=== PATIENT | male | born 1960 | race Caucasian/White ===

== ENCOUNTER 2016-08-30 08:14 | Emergency (ER) | payer OTHER ==
[2016-08-30 08:20] VITALS: BP 153/96; BMI 33.3
[2016-08-30] MEDS ORDERED: ADACEL TDaP IM ONE ×2 (08:43→08:50)
[2016-08-30] MEDS ORDERED: XYLOCAINE 2 % (PLAIN) ONE (08:49)
--- NOTE | 2016-08-30 08:52 | DR.GENAD ---
HPI - PCP Primary Care Physician: brain - HPI Comment HPI Comment: LAC LT INDEX FINGER SUSTAIN TODAY. - Complaint/Symptoms Chief Complaint Doctors Comments: LAC LT INDEX FINGER. Chief Complaint:: laceration to left index finger - Nurses notes reviewed Nurses Notes Review: Yes - Source History Provided: Patient - Mode of Arrival Mode of Arrival: Ambulatory - Timing Onset of Chief Complaint: 08/30/16 Came on: Suddenly - Duration Duration: Hours - Severity Severity: Moderate PMH - PMH Past Medical History: Yes Past Medical History: Arthritis, Hypertension Past Surgical History: Yes Surgical History: Ortho Surgery - Family History History of Family Medical Conditions: Yes Family Medical History: Hypertension - Social History Does patient currently use any type of tobacco product: No Have you used tobacco products in the last 12 months: No Type of Tobacco Use: None Does any household member use tobacco: No Alcohol Use: None Do you use any recreational Drugs:: No Lives With: Other Lives Where: Home - infectious screening In the last 2 months have you had wt loss of >10#?: NO Have you had fever, night sweats or hemotysis?: No Have you traveled outside the country in the last 6 months?: No Isolation: Standard ROS - Review of Systems Constitutional: No Symptoms Reported Eyes: No Symptoms Reported ENTM: No Symptoms Reported Respiratoy: No Symptoms Reported Cardiovascular: No Symptoms Reported Gastrointestinal/Abdominal: No Symptoms Reported Genitourinary: No Symptoms Reported Neurological: No Symptoms Reported Musculoskeletal: No Symptoms Reported, Left, Hand Integumentary: Wound (LAC, 3CM LT INDEX FINGER.) Hematologic/Lymphatic: No Symptoms Reported Endocrine: No Symptoms Reported All Other Systems: Reviewed and Negative PE - Vital Signs Vitals: Temperature 99.0 F Pulse Rate 96 Respiratory Rate 16 Blood Pressure 153/96 O2 Sat by Pulse Oximetry 95 - General Limitations: No Limitations General Appearance: Alert - Head Head Exam: Normal Inspection - Eyes Eye exam: Normal Appearance - ENT ENT Exam: Normal External Ear Exam External Ear Exam: Normal External Inspection TM/Canal Exam: Bilateral Normal Nose Exam: Normal Nose Exam Mouth Exam: Normal Inspection Throat Exam: Normal Inspection - Neck Neck Exam: Normal Inspection - Chest Chest Inspection: Symmetric Chest Wall Rise - Respiratory Respiratory Exam: Normal Lung Sounds Bilat Respiratory Exam: Bilateral Clear to Auscultation - Cardiovascular Cardiovascular Exam: Regular Rate, Normal Rhythm, Normal Heart Sounds - Abdominal Exam Abdominal Exam: Normal Inspection - Extremities Extremities Exam: Tenderness (LT INDEX FINGER LAC) - Back Back Exam: Normal Inspection - Neurologic Neurological Exam: Alert, Oriented X3 - Skin Skin Exam: Erythema MDM - Differential Diagnosis Differential Diagnosis: LAC LT INDEX FINGER. Course - Treatment Treatment: SEE REPORT. - Education/Counseling Education/Counseling: Patient, Education Educated On: Diagnosis, Needs for Follow Up ROR - XRAY XRAY Interpreted by: Radiologist XRAY Findings: REPORT DISCUSS WITH PATIENT. Procedures - Laceration/Wound Repair Left Finger Wound Length (cm): 3 Wound's Depth, Shape: Linear Wound Explored: clean Betadine Prep?: Yes Anesthesia: 1% Lidocaine Volume Anesthetic (ccs): 3 Wound Debrided: minimal Wound Repaired With: sutures Suture Size/Type: 4:0, [place] Number of Sutures: 7 Layer Closure?: No Sterile Dressing Applied?: Yes Splint Applied?: No Sling Applied?: No - Diagnosis Discharge Problem: Laceration of index finger Qualifiers: Encounter type: initial encounter Qualified Code(s): S61.218A - Laceration without foreign body of other finger without damage to nail, initial encounter - Discharge Plan Disposition: 01 HOME, SELF-CARE Condition: Stable Prescriptions: Cephalexin [Keflex Cap 500 mg] 500 mg PO BID #14 cap Ibuprofen [MOTRIN TAB 600 MG *] 600 mg PO BID PRN #20 tab PRN Reason: Pain/Inflammation - Follow ups/Referrals Follow ups/Referrals: NFD,None [Primary Care Provider] - 3 days - Instructions Instructions: Laceration Care, Adult, [id number]-Tynt Additional Instructions: SUTURE OUT IN 10 DAYS. RETURN TO ED IF WORSE.
[2016-08-30] MEDS ORDERED: ANCEF VIAL 1 GM IM ONE (08:53)
[2016-08-30] MEDS ORDERED: ANCEF VIAL 1 GM ONE (08:57)
--- NOTE | 2016-08-30 09:53 | RAD ---
Examination: X-rays of the left hand. Clinical history: Left hand laceration, dropped tool on left hand, laceration to 2nd digit. Technique: Three views of the left hand were obtained. Comparison: None available. Findings: No acute fracture, dislocation, or destructive bony lesion is noted. There is fusion of the interphalangeal joint of the thumb, which is probably postsurgical in nature. There is an 8 mm corticated ossific density seen at the distal aspect of the ulnar styloid, which co uld represent a small accessory ossicle or old ununited ulnar styloid fracture. There is a mild deformity of the distal diaphysis of the radius, suggestive of an old healed fractur e. No soft tissue abnormality is noted. Impression: 1. No acute fracture or dislocation. Reported By:
== END 2016-08-30 10:35 | disposition home or self-care (01) ==
LOC: ER 08:35
PROC: 0XQP0ZZ Repair Left Index Finger, Open Approach (ICD-10-PCS; principal; 2016-08-30)
DX: S61.218A Laceration without foreign body of other finger without damage to nail, initial encounter (principal); W45.8XXA Other foreign body or object entering through skin, initial encounter; Y92.9 Unspecified place or not applicable
CPT/HCPCS: 12002; 73130; 90471; 96372; 99282; 99283; J0690; J2001

== ENCOUNTER 2019-08-30 19:31 | Inpatient (IN) ==
[2019-08-30 19:35] VITALS: BMI 21.5
--- NOTE | 2019-08-30 20:24 | DR.ABDMALE ---
HPI Time seen Time Seen by Provider: 08/30/19 20:16 PCP Primary Care Physician: LANDON HPI comment HPI Comment: PATIENT IS 59YR OLD MALE IN ER WITH PAIN IN LEFT GROIN RADIATING TO LEFT SCOTUM. PAIN SUDDEN ONSET , SHARP ASSOCIATED WITH NAUSEA. NO FEVER OR DYSURIA. DENIES TRAUMA. PAIN IS 10/10 AND SHARP. PATIENT DID NOT TAKE ANY MEDICATION FOR PAIN AND NO SIMILAR PAIN IN THE PAST. MOVEMENT AGGEVATES PAIN AND RESTING DECREASES PAIN. Complaint Chief Complaint:: PT AMBULATED IN ED WITH C/O HERNIA THAT HAS WENT DOWN INTO LEFT TESTICLE. STATES ITS PULLING. COVID-19 Coronavirus risk:travel/contact w/high risk person: No Has patient experienced Coronavirus symptoms: No Reviewed Nurses Notes Review: Yes Source History provided by:: Leonora Mode of arrival Mode of Arrival: Ambulatory Timing Onset of Chief Complaint: 08/30/19 Came on: Suddenly Duration Duration: Constant Duration: Hours Location Location: [facility] Severity Severity: Severe Quality Quality: Sharp Context Onset: Suddenly History of: None Modifying factors Worsening Factors: Exertion Improving Factors: Lying Still Associated signs and symptoms Associated Signs and Symptoms: Nausea PMH PMH Past Medical History: Yes Past Medical History: Arthritis and Hypertension Past Surgical History: Yes Surgical History: Ortho Surgery Family History History of Family Medical Conditions: Yes Family Medical History: Cancer, [place], Coronary Artery Disease, Heart Failure and Hypertension Social History Does patient currently use any type of tobacco product: Yes Have you used tobacco products in the last 12 months: Yes Type of Tobacco Use: Cigarettes Does any household member use tobacco: No Alcohol Use: None Do you use any recreational Drugs:: No Lives With: Family Lives Where: Home Travel Risk Coronavirus risk:travel/contact w/high risk person: No Has patient experienced Coronavirus symptoms: No Infectious screening In the last 2 months have you had wt loss of >10#?: NO Have you had fever, night sweats or hemotysis?: No Have you traveled outside the country in the last 6 months?: No Isolation: Standard ROS Review of Systems Constitutional: No Symptoms Reported and See HPI; negative Fever, Weakness and Fatigue Eyes: No Symptoms Reported and See HPI; negative Blurred Vision ENTM: No Symptoms Reported and See HPI; negative Ear Pain, Nose Discharge, Nose Congestion and Throat Pain Respiratoy: No Symptoms Reported and See HPI; negative Moist Cough, Short of Breath and Wheezing Cardiovascular: No Symptoms Reported and See HPI; negative Chest Pain, Edema and Palpitations Gastrointestinal/Abdominal: No Symptoms Reported, See HPI, Abdominal Pain and Nausea Genitourinary: No Symptoms Reported, See HPI and Pain; negative Dysuria, Freq uency and Hematuria Neurological: No Symptoms Reported and See HPI; negative Headache, Weakness and Dizziness Musculoskeletal: No Symptoms Reported and See HPI Integumentary: No Symptoms Reported and See HPI Hematologic/Lymphatic: No Symptoms Reported and See HPI; negative Easy Bruising and Swollen Glands Endocrine: No Symptoms Reported and See HPI; negative Increased Thirst and Increased Urine Psychiatric: No Symptoms Reported and See HPI All Other Systems: Reviewed and Negative PE Vital Signs Vital Signs: Temp Pulse Resp BP BP Pulse Ox 08/30/19 21:59 74 18 97 08/30/19 21:40 18 08/30/19 21:10 20 08/30/19 21:00 89 20 136/72 94 L 08/30/19 19:32 98.8 F 110 H 22 181/95 94 L 01/08/18 20:27 133/87 General Limitations: No Limitations General Appearance: Alert and In No Apparent Distress Head Head Exam: Normal Inspection Eyes Eye exam: Normal Appearance and PERRL; negative Scleral Icterus and Conjunctival Injection ENT ENT Exam: Normal Exam, Normal Oropharynx, Normal External Ear Exam and TM's Normal Bilaterally Neck Neck Exam: Normal Inspection Chest Chest Inspection: Normal Inspection and Symmetric Chest Wall Rise; negative Tenderness Respiratory Respiratory Exam: Normal Lung Sounds Bilat; negative Accessory Muscle Use, Chest Wall Tenderness and Respiratory Distress Respiratory Exam: Bilateral: Clear to Auscultation Cardiovascular Cardiovascular Exam: Regular Rate, Normal Rhythm and Normal Heart Sounds; negative Systolic Murmur and Diastolic Murmur Abdominal Exam Abdominal Exam: Normal Bowel Sounds, Soft, Tenderness (LEFT GROIN AND SCROTUM.) and Hernia (LEFT GROIN HERNIA THAT IS NOT REDUCIBLE.) Abdominal Tenderness: LLQ Rectal Rectal Exam: Deferred Back Back Exam: Normal Inspection; negative (R) CVA Tenderness and (L) CVA Tenderness Extremeties Extremities Exam: Normal Inspection and Normal Capillary Refill; negative Tenderness, Edema and Calf Tenderness Exam: Male: Other (LEFT SCOTUM TENDER.); negative Testicular Tenderness Neurologic Neurological Exam: Alert, Oriented X3 and CN II-XII Intact; negative Motor Sensory Deficit Psychiatric Psychiatric Exam: Normal Affect and Normal Mood Skin Skin Exam: Warm, Dry, Intact and Normal Color MDM Differential Diagnosis Differential Diagnosis: Hernia (INCARCERATED LEFT INGUINAL HERNIA.), Urinary tract infection and Urolithiasis Other differential diagnosis: LEFT GROIN PAIN COURSE Treatment Treatment: SEE ORDERS. Reevaluation 1st: Improved (PAIN IMPROVING.) Consultation Consultation Comments: DISCUSSED PATIENT WITH DR. LANDERS. HE WILL ADMIT PATIENT. Education/Counseling Education/Counseling: Patient Educated On: Diagnosis ROR Labs Reviewed Laboratory Results Reviewed?: Yes Result Diagrams: 09/01/19 05:22 09/01/19 05: Laboratory: 08/30/19 05: Urine,Clean Catch Urine Culture - Final WBC 10.0 X10^3/uL (3.6-10.0) 08/30/19 20:55 RBC 4.59 X10^6/uL (4.7-6.0) L 08/30/19 20:55 Hgb 12.2 g/dL (13.5-18.0) L 08/30/19 20:55 Hct 36.8 % (42.0-54.0) L 08/30/19 20:55 MCV 80.2 fL (80.0-100.0) 08/30/19 20:55 MCH 26.5 pg (27.0-34.0) L 08/30/19 20:55 MCHC 33.0 g/dL (33.0-35.0) 08/30/19 20:55 RDW 14.9 % (11.6-16.5) 08/30/19 20:55 Plt Count 351 X10^3/uL (150.0-450.0) 08/30/19 20:55 MPV 7.2 fL (7.4-11.0) L 08/30/19 20:55 Neut % (Auto) 52.7 % (42.0-75.0) 08/30/19 20:55 Lymph % (Auto) 20.4 % (21.0-51.0) L 08/30/19 20:55 [place] % (Auto) 8.7 % (0.0-13.0) 08/30/19 20:55 Eos % (Auto) 17.3 % (0.9-2.9) H 08/30/19 20:55 Baso % (Auto) 0.9 % (0.2-1.0) 08/30/19 20:55 Neut # (Auto) 5.3 x10^3/uL (2.2-4.8) H 08/30/19 20:55 Lymph # (Auto) 2.0 X10^3/uL (1.3-2.9) 08/30/19 20:55 [place] # (Auto) 0.9 x10^3/uL (0.3-0.8) H 08/30/19 20:55 Eos # (Auto) 1.7 x10^3/uL (0.0-0.2) H 08/30/19 20:55 Baso # (Auto) 0.1 X10^3/uL (0.0-0.1) 08/30/19 20:55 Absolute Nucleated RBC 0.0 /100WBC 08/30/19 20:55 Sodium 138 mmol/L (136-145) 08/30/19 20:55 Corrected Sodium TNP 08/30/19 20:55 Potassium 4.3 mmol/L (3.5-5.1) 08/30/19 20:55 Chloride 102 mmol/L (98-107) 08/30/19 20:55 Carbon Dioxide 26.2 mmol/L (21-32) 08/30/19 20:55 BUN 27 mg/dL (7-18) H 08/30/19 20:55 Creatinine 1.64 mg/dL (0.70-1.30) H 08/30/19 20:55 Est GFR (MDRD) Af Amer 56 (>60) L 08/30/19 20:55 Est GFR (MDRD) Non-Af 46 (>60) L 08/30/19 20:55 Glucose 102 mg/dL (65-99) H 08/30/19 20:55 Calcium 9.0 mg/dL (8.5-10.1) 08/30/19 20:55 Corrected Calcium TNP 08/30/19 20:55 Total Bilirubin 0.60 mg/dL (0.2-1.0) 08/30/19 20:55 AST 21 Units/L (15-37) 08/30/19 20:55 ALT 17 Units/L (12-78) 08/30/19 20:55 Alkaline Phosphatase 120 Units/L (46-116) H 08/30/19 20:55 Total Protein 8.2 g/dL (6.4-8.2) 08/30/19 20:55 Albumin 3.7 g/dL (3.4-5.0) 08/30/19 20:55 Globulin 4.5 g/dL (2.5-4.5) 08/30/19 20:55 Albumin/Globulin Ratio 0.8 Ratio (1.1-2.1) L 08/30/19 20:55 Specimen Type Clean catch urine 08/30/19 05:20 Urine Color Yellow (YELLOW) 08/30/19 05:20 Urine Appearance Clear (CLEAR) 08/30/19 05:20 Urine pH 5.0 (5.0 - 8.0) 08/30/19 05:20 Ur Specific [place] 1.025 (1.000-1.030) 08/30/19 05:20 Urine Protein 2+ (NEGATIVE) 08/30/19 05:20 Urine Glucose (UA) Negative (NEGATIVE) 08/30/19 05:20 Urine Ketones Negative (NEGATIVE) 08/30/19 05:20 Urine Occult Blood 2+ (NEGATIVE) 08/30/19 05:20 Urine Nitrite Positive (NEGATIVE) 08/30/19 05:20 Urine Bilirubin Negative (NEGATIVE) 08/30/19 05:20 Urine Urobilinogen Normal (NORMAL) 08/30/19 05:20 Ur Leukocyte Esterase 1+ (NEGATIVE) 08/30/19 05:20 Urine RBC 3-5 /HPF (0-3) A 08/30/19 05:20 Urine WBC 3-5 /HPF (0-5) 08/30/19 05:20 Ur Squamous Epith Cells Rare /HPF (NEGATIVE) 08/30/19 05:20 Urine Bacteria 2+ /HPF (NEGATIVE) 08/30/19 05:20 Urine Yeast Few /HPF (NEGATIVE) 08/30/19 05:20 Ur Culture Indicated? Yes/culture set up 08/30/19 05:20 XRAY XRAY Interpreted by: Radiologist (REPOR NOTED AND DISCUSSED WITH PATIENT.) and Self EKG Rate: 82 [place]: Normal Rhythm: NSR Block: None Hypertrophy: None ST: Normal Opioid Opioid Risk Tool Age (Kaz box if 16-45): No History of Preadolescent Sexual Abuse: No Total: 0 Total Score Risk Category: Low Risk Copyright: Junior COLUNGA predicting aberrant behaviors Diagnosis Discharge Problem: Incarcerated left inguinal hernia Hypertension Qualifiers: Hypertension type: essential hypertension Qualified Code(s): I10 - Essential (primary) hypertension Instructions Instructions: Inguinal Hernia, Adult, [id number] Steps to Quit Smoking, Nemq-vf-[id number] Open Hernia Repair, Adult, Care After, Pqvg-[id number] Hypertension, Zpqu-se-[id number] Pain Medicine Instructions, Rhgq-eh-[id number] Forms: Precautions for COVID19 Patient Portal Social Distancing
[2019-08-30] MEDS ORDERED: NS 1000 ML 1,000 ML ONE (20:50)
[2019-08-30] MEDS ORDERED: NS 100 ML IV + SPIKE MINIBAG* 100 ML IV ONE (20:50)
[2019-08-30] MEDS ORDERED: DILAUDID INJ ONE (20:51)
[2019-08-30] MEDS ORDERED: ZOSYN VIAL 3.375 GRAMS IV ONE (20:51)
[2019-08-30 21:07] LABS: BASOPHILS # (AUTO) 0.1 X10^3/uL (0.0-0.1); BASOPHILS % (AUTO) 0.9 % (0.2-1.0); EOSINOPHILS # (AUTO) 1.7 x10^3/uL (0.0-0.2); EOSINOPHILS % (AUTO) 17.3 % (0.9-2.9); HEMATOCRIT 36.8 % (42.0-54.0); HEMOGLOBIN 12.2 g/dL (13.5-18.0); LYMPHOCYTES % (AUTO) 20.4 % (21.0-51.0); MEAN CORPUSCULAR HEMOGLOBIN 26.5 pg (27.0-34.0); MEAN CORPUSCULAR VOLUME 80.2 fL (80.0-100.0); MEAN PLATELET VOLUME 7.2 fL (7.4-11.0); MONOCYTES # (AUTO) 0.9 x10^3/uL (0.3-0.8); MONOCYTES % (AUTO) 8.7 % (0.0-13.0); NEUTROPHILS # (AUTO) 5.3 x10^3/uL (2.2-4.8); NEUTROPHILS % (AUTO) 52.7 % (42.0-75.0); PLATELET COUNT 351 X10^3/uL (150.0-450.0); RED BLOOD COUNT 4.59 X10^6/uL (4.7-6.0); RED CELL DISTRIBUTION WIDTH 14.9 % (11.6-16.5)
[2019-08-30] MEDS: DILAUDID INJ IVP PRN (21:10)
[2019-08-30] MEDS: ZOSYN VIAL 3.375 GRAMS 3.375 G in NS 100 ML IV + SPIKE MINIBAG* 100 ML IV SCH ×2 (21:11→22:55)
[2019-08-30] MEDS: NS 1000 ML 1,000 ML IV SCH (21:14)
[2019-08-30 21:16] LABS: ALANINE AMINOTRANSFERASE 17 Units/L (12-78); ALBUMIN 3.7 g/dL (3.4-5.0); ALKALINE PHOSPHATASE 120 Units/L (46-116); ASPARTATE AMINO TRANSFERASE 21 Units/L (15-37); BLOOD UREA NITROGEN 27 mg/dL (7-18); CARBON DIOXIDE 26.2 mmol/L (21-32); CHLORIDE 102 mmol/L (98-107); CREATININE 1.64 mg/dL (0.70-1.30); SODIUM 138 mmol/L (136-145); TOTAL PROTEIN 8.2 g/dL (6.4-8.2); eGFR NON BLACK RACES 46 (>60)
--- NOTE | 2019-08-30 22:37 | RAD ---
HISTORYPRE OP HERNIA, C/O HERNIA THAT HAS WENT DOWN INTO LEFT TESTICLE. STATES ITS PULLINGSTUDYCHEST, 1 VIEWCOMPARISONNoneFINDINGSThere is a right-sided aortic arch. The heart is normal. The pulmonary vessels are normal. The lungs are mildly hyperinflated. No consolidation or effusion is seen.IMPRESSIONNo acute cardiopulmonary abnormality.Incidental right-sided aortic arch.Electronically signed by: OFELIA GOFF (August 30, 2019 22:36:05)
[2019-08-30] MEDS ORDERED: ZOFRAN INJ 4 MG VIAL IVP PRN (22:47)
[2019-08-31] MEDS: DILAUDID INJ IVP PRN ×7 (01:14→19:36)
[2019-08-31] MEDS: ZOSYN VIAL 3.375 GRAMS 3.375 G in NS 100 ML IV + SPIKE MINIBAG* 100 ML IV SCH (05:03)
[2019-08-31] MEDS: NS 1000 ML 1,000 ML IV SCH (05:03)
[2019-08-31 05:49] LABS: BILIRUBIN,URINE NEGATIVE (NEGATIVE); BLOOD/HEMOGLOBIN,URINE 2+ (NEGATIVE); GLUCOSE, URINE NEGATIVE (NEGATIVE); KETONES,URINE NEGATIVE (NEGATIVE); LEUKOCYTE ESTERASE ,URINE 1+ (NEGATIVE); NITRITES,URINE POSITIVE (NEGATIVE); PROTEIN,URINE 2+ (NEGATIVE); UROBILINOGEN,URINE NORMAL (NORMAL)
[2019-08-31 05:56] LABS: APPEARANCE,URINE CLEAR (CLEAR); BACTERIA,URINE 2+ /HPF (NEGATIVE); COLOR,URINE YELLOW (YELLOW); SQUAMOUS EPITHELIAL CELL,UR RARE /HPF (NEGATIVE); YEAST,URINE FEW /HPF (NEGATIVE)
[2019-08-31 06:04] LABS: BASOPHILS # (AUTO) 0.1 X10^3/uL (0.0-0.1); BASOPHILS % (AUTO) 0.9 % (0.2-1.0); EOSINOPHILS # (AUTO) 2.1 x10^3/uL (0.0-0.2); EOSINOPHILS % (AUTO) 23.7 % (0.9-2.9); HEMATOCRIT 36.7 % (42.0-54.0); LYMPHOCYTES % (AUTO) 34.2 % (21.0-51.0); MEAN CORPUSCULAR HEMOGLOBIN 26.5 pg (27.0-34.0); MEAN CORPUSCULAR HGB CONC 32.6 g/dL (33.0-35.0); MEAN CORPUSCULAR VOLUME 81.1 fL (80.0-100.0); MEAN PLATELET VOLUME 7.8 fL (7.4-11.0); MONOCYTES # (AUTO) 0.9 x10^3/uL (0.3-0.8); NEUTROPHILS # (AUTO) 2.7 x10^3/uL (2.2-4.8); NEUTROPHILS % (AUTO) 31.2 % (42.0-75.0); PLATELET COUNT 326 X10^3/uL (150.0-450.0); RED BLOOD COUNT 4.52 X10^6/uL (4.7-6.0); RED CELL DISTRIBUTION WIDTH 14.9 % (11.6-16.5); WHITE BLOOD COUNT 8.8 X10^3/uL (3.6-10.0)
[2019-08-31 06:12] LABS: ALANINE AMINOTRANSFERASE 16 Units/L (12-78); ALBUMIN 3.3 g/dL (3.4-5.0); ALKALINE PHOSPHATASE 109 Units/L (46-116); ASPARTATE AMINO TRANSFERASE 19 Units/L (15-37); BLOOD UREA NITROGEN 25 mg/dL (7-18); CALCIUM 8.8 mg/dL (8.5-10.1); CARBON DIOXIDE 28.9 mmol/L (21-32); CHLORIDE 106 mmol/L (98-107); COR CA(FOR HYPOALB) 9.4 mg/dL (8.5-10.1); CREATININE 1.36 mg/dL (0.70-1.30); SODIUM 142 mmol/L (136-145); TOTAL PROTEIN 7.5 g/dL (6.4-8.2); eGFR NON BLACK RACES 57 (>60)
[2019-08-31 07:22] LABS: PLATELET MORPHOLOGY COMMENT NORMAL (NORMAL)
[2019-08-31] MEDS ORDERED: DUONEB 0.5 MG/3 MG (3 mL) NEB ONE (08:43)
[2019-08-31] MEDS ORDERED: NEOSTIGMINE INJ ONE (08:51)
[2019-08-31] MEDS ORDERED: ULTANE GAS IN ONE (08:51)
[2019-08-31] MEDS ORDERED: DIPRIVAN VIAL ONE (08:51)
[2019-08-31] MEDS ORDERED: QUELICIN (OR ANECTINE) ONE (08:51)
[2019-08-31] MEDS ORDERED: XYLOCAINE 1 % (PLAIN) ONE (08:51)
[2019-08-31] MEDS ORDERED: DECADRON INJ ONE ×2 (08:51→11:24)
[2019-08-31] MEDS ORDERED: VERSED ONE (08:51)
[2019-08-31] MEDS ORDERED: TORADOL 30 MG VIAL ONE (08:51)
[2019-08-31] MEDS ORDERED: NORCURON INJ 10 MG VIAL ONE (08:51)
[2019-08-31] MEDS ORDERED: ZOFRAN INJ 4 MG VIAL ONE (08:51)
[2019-08-31] MEDS ORDERED: ROBINUL ONE (08:51)
--- NOTE | 2019-08-31 10:38 | DR.H&P ---
H&P History & Physical for Day of: H&P Date: 08/31/19 Chief Complaint Chief Complaint: acute testicular pain Allergies Allergies Allergy/AdvReac Type Severity Reaction Status Date / Time No Known Drug Allergies Allergy Verified 01/08/18 16:49 History of Present Illness History of Present Illness: Patient is a 59y/o male with a PMH of HTN, arthritis presented with acute left inguinal and testicular pain. Patient reports he was working in the yard and digging up dirt when he felt a muscle pull into his testicle. He reports severe sharp pain therefore came to the ED. He states he has had inguinal hernia for a while but no prev episodes like this. He has a hx of HTN, was on clonidine but has not taken it recently due to running out and having no PCP. ED work-up - Pain control, IVF - Cr: 1.64, UA: nitrites +, CLOTILDE 1+ - CXR negative, COVID pending for pre-op - Dr. Juárez contacted for possible incarcerated hernia, patient was kept NPO for procedure today Plan: surgery today, continue IVF, Zosyn and pain control. Follow urine culture. Past Medical History Past Medical History: Arthritis and Hypertension Past Surgical History Surgical History: Ortho Surgery and Tonsillectomy Family History Family Medical History: Cancer, [place], Coronary Artery Disease, Heart Failure and Hypertension Social History Does patient currently use any type of tobacco product: Yes Have you used tobacco products in the last 12 months: Yes Type of Tobacco Use: Cigarettes How many years tobacco product used: 20 Does any household member use tobacco: No Alcohol Use: None Drug Use: None Medications Home Medications: No Known Drug Allergies Allergy (Verified 01/08/18 16:49) CONTINUE taking the following medications NK 08/30/19 [History] Labs Result Diagrams: 08/31/19 04:38 08/31/19 04:38 Labs: Laboratory WBC 8.8 X10^3/uL (3.6-10.0) 08/31/19 04:38 RBC 4.52 X10^6/uL (4.7-6.0) L 08/31/19 04:38 Hgb 12.0 g/dL (13.5-18.0) L 08/31/19 04:38 Hct 36.7 % (42.0-54.0) L 08/31/19 04:38 MCV 81.1 fL (80.0-100.0) 08/31/19 04:38 MCH 26.5 pg (27.0-34.0) L 08/31/19 04:38 MCHC 32.6 g/dL (33.0-35.0) L 08/31/19 04:38 RDW 14.9 % (11.6-16.5) 08/31/19 04:38 Plt Count 326 X10^3/uL (150.0-450.0) 08/31/19 04:38 Plt Count Comment Adequate (ADEQUATE) 08/31/19 04:38 MPV 7.8 fL (7.4-11.0) 08/31/19 04:38 Neut % (Auto) 31.2 % (42.0-75.0) L 08/31/19 04:38 Lymph % (Auto) 34.2 % (21.0-51.0) 08/31/19 04:38 [place] % (Auto) 10.0 % (0.0-13.0) 08/31/19 04:38 Eos % (Auto) 23.7 % (0.9-2.9) H 08/31/19 04:38 Baso % (Auto) 0.9 % (0.2-1.0) 08/31/19 04:38 Neut # (Auto) 2.7 x10^3/uL (2.2-4.8) 08/31/19 04:38 Lymph # (Auto) 3.0 X10^3/uL (1.3-2.9) H 08/31/19 04:38 [place] # (Auto) 0.9 x10^3/uL (0.3-0.8) H 08/31/19 04:38 Eos # (Auto) 2.1 x10^3/uL (0.0-0.2) H 08/31/19 04:38 Baso # (Auto) 0.1 X10^3/uL (0.0-0.1) 08/31/19 04:38 Absolute Nucleated RBC 0.0 /100WBC 08/31/19 04:38 Total Counted 100 08/31/19 04:38 Neutrophils % (Manual) 35 % (39-76) L 08/31/19 04:38 Lymphocytes % (Manual) 40 % (13-43) 08/31/19 04:38 Monocytes % (Manual) 6 % (4-9) 08/31/19 04:38 Eosinophils % (Manual) 19 % (0-6) H 08/31/19 04:38 Plt Morphology Comment Normal (NORMAL) 08/31/19 04:38 RBC Morphology Normal (NORMAL) 08/31/19 04:38 Sodium 142 mmol/L (136-145) 08/31/19 04:38 Corrected Sodium TNP 08/31/19 04:38 Potassium 4.3 mmol/L (3.5-5.1) 08/31/19 04:38 Chloride 106 mmol/L (98-107) 08/31/19 04:38 Carbon Dioxide 28.9 mmol/L (21-32) 08/31/19 04:38 BUN 25 mg/dL (7-18) H 08/31/19 04:38 Creatinine 1.36 mg/dL (0.70-1.30) H 08/31/19 04:38 Est GFR (MDRD) Af Amer > 60 (>60) 08/31/19 04:38 Est GFR (MDRD) Non-Af 57 (>60) L 08/31/19 04:38 Glucose 88 mg/dL (65-99) 08/31/19 04:38 Calcium 8.8 mg/dL (8.5-10.1) 08/31/19 04:38 Corrected Calcium 9.4 mg/dL (8.5-10.1) 08/31/19 04:38 Total Bilirubin 0.40 mg/dL (0.2-1.0) 08/31/19 04:38 AST 19 Units/L (15-37) 08/31/19 04:38 ALT 16 Units/L (12-78) 08/31/19 04:38 Alkaline Phosphatase 109 Units/L (46-116) 08/31/19 04:38 Total Protein 7.5 g/dL (6.4-8.2) 08/31/19 04:38 Albumin 3.3 g/dL (3.4-5.0) L 08/31/19 04:38 Globulin 4.2 g/dL (2.5-4.5) 08/31/19 04:38 Albumin/Globulin Ratio 0.8 Ratio (1.1-2.1) L 08/31/19 04:38 Specimen Type Clean catch urine 08/30/19 05:20 Urine Color Yellow (YELLOW) 08/30/19 05:20 Urine Appearance Clear (CLEAR) 08/30/19 05:20 Urine pH 5.0 (5.0 - 8.0) 08/30/19 05:20 Ur Specific [place] 1.025 (1.000-1.030) 08/30/19 05:20 Urine Protein 2+ (NEGATIVE) 08/30/19 05:20 Urine Glucose (UA) Negative (NEGATIVE) 08/30/19 05:20 Urine Ketones Negative (NEGATIVE) 08/30/19 05:20 Urine Occult Blood 2+ (NEGATIVE) 08/30/19 05:20 Urine Nitrite Positive (NEGATIVE) 08/30/19 05:20 Urine Bilirubin Negative (NEGATIVE) 08/30/19 05:20 Urine Urobilinogen Normal (NORMAL) 08/30/19 05:20 Ur Leukocyte Esterase 1+ (NEGATIVE) 08/30/19 05:20 Urine RBC 3-5 /HPF (0-3) A 08/30/19 05:20 Urine WBC 3-5 /HPF (0-5) 08/30/19 05:20 Ur Squamous Epith Cells Rare /HPF (NEGATIVE) 08/30/19 05:20 Urine Bacteria 2+ /HPF (NEGATIVE) 08/30/19 05:20 Urine Yeast Few /HPF (NEGATIVE) 08/30/19 05:20 Ur Culture Indicated? Yes/culture set up 08/30/19 05:20 Review of Systems Constitutional: No Symptoms Reported Eyes: No Symptoms Reported ENT: No Symptoms Reported Respiratory: No Symptoms Reported Cardiovascular: No Symptoms Reported Gastrointestinal: Nausea Genitourinary: Other (testicular pain ) Musculoskeletal: Back Pain and Neck Pain Skin: No Symptoms Reported Neurological: No Symptoms Reported Physical Exam Vital Signs: Temperature 98.3 F Pulse Rate [Left Brachial] 53 Pulse Rate 83 Respiratory Rate 18 Blood Pressure [Left Arm] 161/88 Blood Pressure 148/74 O2 Sat by Pulse Oximetry 95 Oriented: Normal Eyes: Normal Respiratory: Clear Throughout Cardiovascular: Normal : Testicular Pain Auscultation: Bowel Sounds: Normal Palpation: Normal Tenderness: Normal Skin: Normal Musculoskeletal: Normal Psychiatric: Normal Mood Description: Calm Affect: Normal Speech Pattern: Clear and Appropriate Assessment/Plan (1) Incarcerated left inguinal hernia: Status: Acute (2) ROHAN (acute kidney injury): Status: Acute (3) Acute cystitis without hematuria: Status: Acute (4) HTN (hypertension): Qualifiers: Hypertension type: essential hypertension Qualified Code(s): I10 - Essential (primary) hypertension Status: Acute Review H&P Reviewed: Yes Patient was examined?: Yes
[2019-08-31] MEDS ORDERED: MORPHINE SULFATE INJ 2 MG INJ ONE (11:24)
[2019-08-31] MEDS ORDERED: NS 1000 ML 1,000 ML ONE ×2 (11:24→11:25)
[2019-08-31] MEDS ORDERED: FENTANYL INJ 100 mcg ONE (11:24)
[2019-08-31] MEDS ORDERED: ANCEF 1 GRAM IV PREMIX* 1 G/50 ML BAG IV ONE (11:26)
[2019-08-31] MEDS ORDERED: MARCAINE 0.5% ONE (12:18)
[2019-08-31] MEDS ORDERED: APRESOLINE INJ 20 MG VIAL ONE (13:27)
[2019-08-31] MEDS ORDERED: ZOFRAN INJ 4 MG VIAL IVP PRN (13:30)
[2019-08-31] MEDS ORDERED: REGLAN INJ 10 MG VIAL IVP PRN (13:30)
[2019-08-31] MEDS ORDERED: PHENERGAN INJ 25 MG IM PRN (13:30)
[2019-08-31] MEDS ORDERED: BENADRYL INJ 50 MG VIAL IVP PRN (13:30)
[2019-08-31] MEDS ORDERED: DILAUDID INJ ONE (13:39)
[2019-08-31] MEDS: D5 1/2 NS 1000 ML 1,000 ML IV SCH ×2 (14:17→21:25)
[2019-08-31] MEDS: ZOSYN VIAL 3.375 GRAMS 3.375 G in NS 100 ML IV 100 ML IV SCH ×2 (14:17→21:25)
[2019-08-31] MEDS ORDERED: PERCOCET TAB 5/325 MG ONE (17:58)
[2019-08-31] MEDS: PERCOCET TAB 5/325 MG PO PRN ×2 (18:04→22:20)
[2019-09-01] MEDS: ZOSYN VIAL 3.375 GRAMS 3.375 G in NS 100 ML IV 100 ML IV SCH (05:41)
[2019-09-01] MEDS: D5 1/2 NS 1000 ML 1,000 ML IV SCH (05:41)
[2019-09-01] MEDS: DILAUDID INJ IVP PRN (05:42)
[2019-09-01 06:12] LABS: BASOPHILS % (AUTO) 0.3 % (0.2-1.0); EOSINOPHILS % (AUTO) 0.2 % (0.9-2.9); HEMATOCRIT 35.1 % (42.0-54.0); HEMOGLOBIN 11.4 g/dL (13.5-18.0); LYMPHOCYTES # (AUTO) 1.8 X10^3/uL (1.3-2.9); LYMPHOCYTES % (AUTO) 14.5 % (21.0-51.0); MEAN CORPUSCULAR HEMOGLOBIN 26.4 pg (27.0-34.0); MEAN CORPUSCULAR HGB CONC 32.4 g/dL (33.0-35.0); MEAN CORPUSCULAR VOLUME 81.6 fL (80.0-100.0); MEAN PLATELET VOLUME 8.1 fL (7.4-11.0); MONOCYTES # (AUTO) 0.7 x10^3/uL (0.3-0.8); MONOCYTES % (AUTO) 5.7 % (0.0-13.0); NEUTROPHILS # (AUTO) 9.7 x10^3/uL (2.2-4.8); NEUTROPHILS % (AUTO) 79.3 % (42.0-75.0); PLATELET COUNT 329 X10^3/uL (150.0-450.0); RED CELL DISTRIBUTION WIDTH 15.3 % (11.6-16.5); WHITE BLOOD COUNT 12.3 X10^3/uL (3.6-10.0)
[2019-09-01 06:19] LABS: ALANINE AMINOTRANSFERASE 13 Units/L (12-78); ALKALINE PHOSPHATASE 100 Units/L (46-116); ASPARTATE AMINO TRANSFERASE 21 Units/L (15-37); BLOOD UREA NITROGEN 20 mg/dL (7-18); CALCIUM 8.6 mg/dL (8.5-10.1); CHLORIDE 106 mmol/L (98-107); COR CA(FOR HYPOALB) 9.4 mg/dL (8.5-10.1); COR NA(FOR HYPERGLY) 140 mmol/L (136-145); CREATININE 1.18 mg/dL (0.70-1.30); SODIUM 139 mmol/L (136-145); eGFR NON BLACK RACES > 60 (>60)
[2019-09-01] MEDS ORDERED: PERCOCET TAB 5/325 MG PO PRN (07:59)
[2019-09-01] MEDS ORDERED: DILAUDID INJ IVP PRN (07:59)
[2019-09-01] MEDS ORDERED: NORVASC TAB 5 MG PO SCH (09:00)
--- NOTE | 2019-09-01 09:07 | PCM.PROG ---
Progress Note Progress Note for Day of Date of Exam: 09/01/19 Subjective Subjective: Patient seen at bedside, reports feeling better. POD#1 s/p left inguinal hernia repair. He reports pain is well controlled. Denies N/V/D. He is eating well. Labs: Cr: trending down 1.18, Hgb stable Plan: DC IVF, add Norvasc, follow surgery recommendations Past Medical Family Social History Past Med/Fam/Surg Hx: No changes since H&P Allergies: Allergies No Known Drug Allergies Allergy (Verified 01/08/18 16:49) Review of Systems ROS: No change since H&P Vital Signs and I&O's Vital Signs: Temperature 98.5 F Pulse Rate [Left Brachial] 71 Pulse Rate 74 Respiratory Rate 18 Blood Pressure [Left Arm] 143/83 Blood Pressure 135/80 O2 Sat by Pulse Oximetry 97 Intake and Output: Intake & Output 08/29/19 08/30/19 08/31/19 09/01/19 23:59 23:59 23:59 23:59 Intake Total 150 / 150 4935 / 4935 1030 / 1030 Output Total 1600 / 1600 550 / 550 Balance 150 / 150 3335 / 3335 480 / 480 Physical Exam Oriented: Normal Eyes: Normal Respiratory: Normal Cardiovascular: Normal Auscultation: Bowel Sounds: Normal and Other (left groin area dressing noted ) Tenderness: Normal Skin: Normal Musculoskeletal: Normal Psychiatric: Normal Mood Description: Calm and Appropriate Affect: Normal Speech Pattern: Clear and Appropriate Laboratory and Diagnostics Result Diagrams: 09/01/19 05:22 09/01/19 05:22 Labs: 08/30/19 05:20 Urine,Clean Catch Urine Culture - Final Laboratory WBC 12.3 X10^3/uL (3.6-10.0) H 09/01/19 05:22 RBC 4.30 X10^6/uL (4.7-6.0) L 09/01/19 05:22 Hgb 11.4 g/dL (13.5-18.0) L 09/01/19 05:22 Hct 35.1 % (42.0-54.0) L 09/01/19 05:22 MCV 81.6 fL (80.0-100.0) 09/01/19 05:22 MCH 26.4 pg (27.0-34.0) L 09/01/19 05:22 MCHC 32.4 g/dL (33.0-35.0) L 09/01/19 05:22 RDW 15.3 % (11.6-16.5) 09/01/19 05:22 Plt Count 329 X10^3/uL (150.0-450.0) 09/01/19 05:22 Plt Count Comment Adequate (ADEQUATE) 08/31/19 04:38 MPV 8.1 fL (7.4-11.0) 09/01/19 05:22 Neut % (Auto) 79.3 % (42.0-75.0) H 09/01/19 05:22 Lymph % (Auto) 14.5 % (21.0-51.0) L 09/01/19 05:22 [place] % (Auto) 5.7 % (0.0-13.0) 09/01/19 05:22 Eos % (Auto) 0.2 % (0.9-2.9) L 09/01/19 05:22 Baso % (Auto) 0.3 % (0.2-1.0) 09/01/19 05:22 Neut # (Auto) 9.7 x10^3/uL (2.2-4.8) H 09/01/19 05:22 Lymph # (Auto) 1.8 X10^3/uL (1.3-2.9) 09/01/19 05:22 [place] # (Auto) 0.7 x10^3/uL (0.3-0.8) 09/01/19 05:22 Eos # (Auto) 0.0 x10^3/uL (0.0-0.2) 09/01/19 05:22 Baso # (Auto) 0.0 X10^3/uL (0.0-0.1) 09/01/19 05:22 Absolute Nucleated RBC 0.0 /100WBC 09/01/19 05:22 Total Counted 100 08/31/19 04:38 Neutrophils % (Manual) 35 % (39-76) L 08/31/19 04:38 Lymphocytes % (Manual) 40 % (13-43) 08/31/19 04:38 Monocytes % (Manual) 6 % (4-9) 05/18/20 04:38 Eosinophils % (Manual) 19 % (0-6) H 08/31/19 04:38 Plt Morphology Comment Normal (NORMAL) 08/31/19 04:38 RBC Morphology Normal (NORMAL) 08/31/19 04:38 Sodium 139 mmol/L (136-145) 09/01/19 05:22 Corrected Sodium 140 mmol/L (136-145) 09/01/19 05:22 Potassium 4.6 mmol/L (3.5-5.1) 09/01/19 05:22 Chloride 106 mmol/L (98-107) 09/01/19 05:22 Carbon Dioxide 27.0 mmol/L (21-32) 09/01/19 05:22 BUN 20 mg/dL (7-18) H 09/01/19 05:22 Creatinine 1.18 mg/dL (0.70-1.30) 09/01/19 05:22 Est GFR (MDRD) Af Amer > 60 (>60) 09/01/19 05:22 Est GFR (MDRD) Non-Af > 60 (>60) 09/01/19 05:22 Glucose 126 mg/dL (65-99) H 09/01/19 05:22 Calcium 8.6 mg/dL (8.5-10.1) 09/01/19 05:22 Corrected Calcium 9.4 mg/dL (8.5-10.1) 09/01/19 05:22 Total Bilirubin 0.30 mg/dL (0.2-1.0) 09/01/19 05:22 AST 21 Units/L (15-37) 09/01/19 05:22 ALT 13 Units/L (12-78) 09/01/19 05:22 Alkaline Phosphatase 100 Units/L (46-116) 09/01/19 05:22 Total Protein 7.0 g/dL (6.4-8.2) 09/01/19 05:22 Albumin 3.0 g/dL (3.4-5.0) L 09/01/19 05:22 Globulin 4.0 g/dL (2.5-4.5) 09/01/19 05:22 Albumin/Globulin Ratio 0.8 Ratio (1.1-2.1) L 09/01/19 05:22 Specimen Type Clean catch urine 05/17/20 05:20 Urine Color Yellow (YELLOW) 08/30/19 05:20 Urine Appearance Clear (CLEAR) 08/30/19 05:20 Urine pH 5.0 (5.0 - 8.0) 08/30/19 05:20 Ur Specific [place] 1.025 (1.000-1.030) 08/30/19 05:20 Urine Protein 2+ (NEGATIVE) 08/30/19 05:20 Urine Glucose (UA) Negative (NEGATIVE) 08/30/19 05:20 Urine Ketones Negative (NEGATIVE) 08/30/19 05:20 Urine Occult Blood 2+ (NEGATIVE) 08/30/19 05:20 Urine Nitrite Positive (NEGATIVE) 08/30/19 05:20 Urine Bilirubin Negative (NEGATIVE) 08/30/19 05:20 Urine Urobilinogen Normal (NORMAL) 08/30/19 05:20 Ur Leukocyte Esterase 1+ (NEGATIVE) 08/30/19 05:20 Urine RBC 3-5 /HPF (0-3) A 08/30/19 05:20 Urine WBC 3-5 /HPF (0-5) 08/30/19 05:20 Ur Squamous Epith Cells Rare /HPF (NEGATIVE) 08/30/19 05:20 Urine Bacteria 2+ /HPF (NEGATIVE) 08/30/19 05:20 Urine Yeast Few /HPF (NEGATIVE) 08/30/19 05:20 Ur Culture Indicated? Yes/culture set up 08/30/19 05:20 SARS-CoV-2 (PCR) Negative (NEGATIVE) 08/31/19 09:25 Tissue Pathology To follow 08/31/19 12:44 Plan (1) Incarcerated left inguinal hernia: Status: Acute (2) ROHAN (acute kidney injury): Status: Acute (3) Acute cystitis without hematuria: Status: Acute (4) HTN (hypertension): Status: Acute Qualifiers: Hypertension type: essential hypertension Qualified Code(s): I10 - Essential (primary) hypertension
[2019-09-01 09:34] VITALS: BP 154/76
== END 2019-09-01 12:05 | disposition home or self-care (01) | DRG 351 ==
LOC: ER 19:31 → MED/SURG 22:01
PROVIDERS: ADMIT Surgery; ATTEND Surgery
DX: K40.30 Unilateral inguinal hernia, with obstruction, without gangrene, not specified as recurrent; I10 Essential (primary) hypertension; N17.8 Other acute kidney failure; N30.00 Acute cystitis without hematuria; Z11.59 Encounter for screening for other viral diseases; N50.812 Left testicular pain
CPT/HCPCS: 36415; 71010; 71045; 80053; 81001; 85025; 87086; 87635; 93005; 94640; 94760; 96365; 96367; 96374; 96375; 99284; A4222; J0330; J0360; J0690; J1100; J1170; J1885; J2250; J2270; J2405; J2543; J2704; J2710; J3010; J3490; J7030; J7050; J7620; S5010